=== PATIENT | male | born 1950 | race Caucasian/White ===

== ENCOUNTER 2020-04-09 14:20 | Inpatient (IN) | payer MEDICARE, MEDICAID ==
[2020-04-09] MEDS ORDERED: Polyethylene Glycol 3350 Powder 17 GM Packet PO PRN (15:01)
[2020-04-09] MEDS ORDERED: Acetaminophen 325 MG Tab PO PRN (15:09)
[2020-04-09] MEDS ORDERED: Zinc (Zinc Gluconate) 50 MG Tab PO SCH (15:15)
--- NOTE | 2020-04-09 15:32 | PCM.HP.2 ---
H&P History of Present Illness - General Date of Service: 04/09/20 Admit Problem/Dx: Admission Diagnosis/Problem Admission Diagnosis/Problem Pneumonia Source of Information: Patient, Family, Alf Records, Other (EMR) - History of Present Illness Initial Comments - Free Text/Narative: Mr. 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 Additional history is obtained from the patient's sister and the electronic medical record given his history of intellectual disabilities. His sister states that she feels he has likely been ill for at least 2 days. He has been more fatigued and forgetting to call her, which is very unusual for him. She had also noticed that he was coughing when she talked to him on the phone a couple of days ago. He was tested yesterday due to symptoms noted by [facility] staff and did come back positive. He was started on oxygen and dexamethasone per standing orders. His oxygen requirements have progressively increased and he had been titrated up to the maximum that they are able to do at the [facility] with persistent saturations still in the 89% range. Therefore, discussion was had with the patient's sister and she was agreeable to admission to [facility] for further cares. The p atient states that he has been feeling fatigued and has had a mild cough. He denies any fever, chills, vomiting, diarrhea, or shortness of breath. He states that he is not having any chest pain. He admits that he is not sure his medical history nor his medications at this point in time. - Related Data Allergies/Adverse Reactions: Allergies Allergy/AdvReac Type Severity Reaction Status Date / Time No Known Allergies Allergy Verified 04/09/20 14:32 Home Medications: Home Meds Calcium Citrate/Vitamin D3 [Calcium Citrate - Vit D Caplet] 2 tab PO DAILY 09/09/13 [History] Dextran 70/Hypromellose [Artificial Tears] 1 drop EYEBOTH QID 09/09/13 [History] Escitalopram [Lexapro] 10 mg PO DAILY 09/09/13 [History] Folic Acid 400 mcg PO DAILY 09/09/13 [History] Multivitamin [Multivitamins] 1 tab PO DAILY 09/09/13 [History] Omeprazole [Prilosec] 20 mg PO Q48H 09/09/13 [History] Oxybutynin Chloride [Ditropan Xl] 10 mg PO DAILY 09/09/13 [History] polyethylene glycoL 3350 [Miralax] 17 gm PO DAILY 09/09/13 [History] Clotrimazole [Lotrimin AF] 1 applic TOP DAILY PRN 04/09/20 [History] Docusate Sodium 100 mg PO BID 04/09/20 [History] Hydrocortisone [Hydrocortisone 2.5% Crm] 1 applic TOP ASDIRECTED PRN 04/09/20 [History] Ketoconazole [Ketoconazole 2%] 1 applic TOP ASDIRECTED PRN 04/09/20 [History] Loperamide [Imodium AD] 0 dose PO ASDIRECTED PRN MDD 16 mg per 24 hours 04/09/20 [History] Pimecrolimus [Elidel] 1 applic TOP ASDIRECTED PRN 04/09/20 [History] Potassium Chloride 20 meq PO DAILY 04/09/20 [History] Pramipexole Di-HCl [Mirapex] 0.125 mg PO DAILY@1900 04/09/20 [History] Simvastatin [Zocor] 10 mg PO BEDTIME 04/09/20 [History] Soap [Cetaphil] 1 applic TOP DAILY 04/09/20 [History] hydroCHLOROthiazide [Hydrochlorothiazide] 25 mg PO DAILY 04/09/20 [History] lisinopriL [Lisinopril] 10 mg PO DAILY 04/09/20 [History] metFORMIN [Glucophage] 500 mg PO DAILY 04/09/20 [History] risperiDONE [Risperdal] 0.5 mg PO BID 04/09/20 [History] Past Medical History HEENT History: Reports: None Cardiovascular History: Reports: Hypertension Respiratory History: Reports: COPD Gastrointestinal History: Reports: Chronic Constipation Genitourinary History: Reports: None Musculoskeletal History: Reports: Osteoporosis Other Musculoskeletal History: Marfan Syndrome Neurological History: Reports: Migraines, Other (See Below) (mild intellectual disability) Other Neuro History: essential tremor, RLS Psychiatric History: Reports: Addiction (alcohol), Depression Endocrine/Metabolic History: Reports: Diabetes, Type II Hematologic History: Reports: None Immunologic History: Reports: None Oncologic (Cancer) History: Reports: None Dermatologic History: Reports: Psoriasis, Seborrheic Dermatitis - Past Surgical History HEENT Surgical History: Reports: Cataract Surgery GI Surgical History: Reports: Cholecystectomy, Colonoscopy, EGD, Hernia Repair/Other Social & Family History - Family History Cardiac: Reports: CAD, Hypertension Respiratory: Reports: Asthma Oncologic: Reports: Esophageal - Tobacco Use Tobacco Use Status *Q: Former Tobacco User - Alcohol Use Alcohol Use History: Yes Alcohol Use in Last Twelve Months: No - Recreational Drug Use Recreational Drug Use: No Drug Use in Last 12 Months: No - Living Situation & Occupation Living situation: Reports: Single, Extended Care Facility Occupation: Disabled H&P Review of Systems - Review of Systems: Review Of Systems: See Below General: Reports: Malaise, Weakness, Fatigue. Denies: Fever, Chills HEENT: Reports: No Symptoms Pulmonary: Reports: Cough. Denies: Shortness of Breath Cardiovascular: Reports: No Symptoms Gastrointestinal: Reports: No Symptoms Genitourinary: Reports: No Symptoms Musculoskeletal: Reports: No Symptoms Skin: Reports: No Symptoms Psychiatric: Reports: No Symptoms Neurological: Reports: No Symptoms Hematologic/Lymphatic: Reports: No Symptoms Exam - Exam Exam: See Below - Exam General: Alert, Cooperative HEENT: Conjunctiva Clear, Mucosa Moist & [place], Posterior Pharynx Clear, Pupils Equal, Pupils Reactive Neck: Supple, Trachea Midline. No: Lymphadenopathy, Thyromegaly Lungs: Normal Respiratory Effort, Crackles (scattered throughout both lung steele) Cardiovascular: Regular Rate, Regular Rhythm, Normal S1, Normal S2 GI/Abdominal Exam: Normal Bowel Sounds, Soft, Non-Tender, No Organomegaly, No Distention, No Mass Extremities: Normal Inspection, Non-Tender, No Pedal Edema, Normal Capillary Refill Peripheral Pulses: 2+: Radial (L), Radial (R) Skin: Warm, Dry, Intact Neuro Extensive - Mental Status: Alert, Normal Mood/Affect - Patient Data Result Diagrams: 04/09/20 16:30 04/09/20 16:30 - Problem List (1) COVID-19 SNOMED Code(s): 424533969 ICD Code: U07.1 - COVID-19 Status: Acute Current Visit: No (2) Respiratory failure SNOMED Code(s): 754452244 ICD Code: J96.90 - RESPIRATORY FAILURE, UNSP, UNSP W HYPOXIA OR HYPERCAPNIA Status: Acute Current Visit: No Qualifiers: Chronicity: acute Respiratory failure complication: hypoxia Qualified Code(s): J96.01 - Acute respiratory failure with hypoxia (3) COPD, Moderate chronic obstructive pulmonary disease SNOMED Code(s): 211247387 ICD Code: J44.9 - CHRONIC OBSTRUCTIVE PULMONARY DISEASE, UNSPECIFIED Status: Chronic Current Visit: No (4) Mild intellectual disability Status: Chronic Current Visit: No (5) Diabetes SNOMED Code(s): 08309071 ICD Code: E11.9 - TYPE 2 DIABETES MELLITUS WITHOUT COMPLICATIONS Status: Chronic Current Visit: No Qualifiers: Diabetes mellitus type: type 2 Diabetes mellitus complication status: without complication (6) HTN, Benign hypertension SNOMED Code(s): 12245694 ICD Code: I10 - ESSENTIAL (PRIMARY) HYPERTENSION Status: Chronic Current Visit: No (7) Depression SNOMED Code(s): 63959132 ICD Code: F32.9 - MAJOR DEPRESSIVE DISORDER, SINGLE EPISODE, UNSPECIFIED Status: Chronic Current Visit: No Qualifiers: Depression Type: major depressive disorder Major depression recurrence: recurrent Active/Remission status: in full remission Qualified Code(s): F3 3.42 - Major depressive disorder, recurrent, in full remission (8) RLS (restless legs syndrome) SNOMED Code(s): 70052494 ICD Code: G25.81 - RESTLESS LEGS SYNDROME Status: Chronic Current Visit: No (9) Constipation SNOMED Code(s): 52106376 ICD Code: K59.00 - CONSTIPATION, UNSPECIFIED Status: Chronic Current Visit: No Qualifiers: Constipation type: unspecified constipation type Qualified Code(s): K59.00 - Constipation, unspecified (10) Urinary urgency Status: Chronic Current Visit: No (11) Marfan's syndrome SNOMED Code(s): 93351648 ICD Code: Q87.40 - MARFAN'S SYNDROME, UNSPECIFIED Status: Chronic Current Visit: No Problem List Initiated/Reviewed/Updated: Yes Orders Last 24hrs: Active Orders 24 hr Category Date Time Status Patient Status [ADT] Routine ADT 04/09/20 15:09 Active Notify Provider Vital Signs [RC] ASDIRECTED Care 04/09/20 15:10 Active Oxygen Therapy [RC] PRN Care 04/09/20 15:09 Active Up With Assistance [RC] ASDIRECTED Care 04/09/20 15:09 Active VTE/DVT Education [RC] PER UNIT ROUTINE Care 04/09/20 15:09 Active Vital Signs [RC] Q4H Care 04/09/20 15:09 Active [employer] Diet [DIET] Diet 04/09/20 Dinner Active C-REACTIVE PROTEIN [CHEM] Stat Lab 04/09/20 15:06 Ordered CBC WITH AUTO DIFF [HEME] Stat Lab 04/09/20 15:06 Ordered COMPREHENSIVE METABOLIC PN,CMP [CHEM] Stat Lab 04/09/20 15:06 Ordered FERRITIN [CHEM] Stat Lab 04/09/20 15:06 Ordered INR,PT,PROTHROMBIN TIME [COAG] Stat Lab 04/09/20 15:06 Ordered Acetaminophen [TylenoL] Med 04/09/20 15:09 Ordered 650 mg PO Q4H PRN Ascorbic Acid [Vitamin C] Med 04/09/20 20:00 Ordered 1,000 mg PO BID Cholecalciferol (Vitamin D3) [Vitamin D3] Med 04/10/20 08:00 Ordered 25 mcg PO DAILY Dextran 70/Hypromellose [Artificial Tears] Med 04/09/20 16:00 Ordered 1 drop EYEBOTH QID Docusate Sodium [Colace] Med 04/09/20 20:00 Ordered 100 mg PO BID Enoxaparin [Lovenox] Med 04/10/20 08:00 Ordered 40 mg SUBCUT DAILY Escitalopram [Lexapro] Med 04/10/20 08:00 Ordered 10 mg PO DAILY Omeprazole Med 04/09/20 15:15 Ordered 20 mg PO Q48H Oxybutynin Chloride [Ditropan Xl] Med 04/10/20 08:00 Ordered 10 mg PO DAILY Pramipexole [Mirapex] Med 04/09/20 19:00 Ordered 0.125 mg PO DAILY@1900 Zinc Gluconate [Zinc] Med 04/09/20 15:15 Ordered 220 mg PO DAILY atorvaSTATin [Lipitor] Med 04/09/20 20:00 Ordered 40 mg PO BEDTIME polyethylene glycoL 3350 [MiraLAX] Med 04/09/20 15:01 Ordered 17 gm PO DAILY PRN risperiDONE [Risperdal] Med 04/09/20 20:00 Ordered 0.5 mg PO BID Resuscitation Status Routine Resus Stat 04/09/20 15:09 Ordered Medication Orders Acetaminophen (Tylenol) 650 mg PO Q4H PRN PRN Reason: Pain (Mild 1-3)/fever Ascorbic Acid (Vitamin C) 1,000 mg PO BID [facility] Atorvastatin Calcium (Lipitor) 40 mg PO BEDTIME PAM Cholecalciferol (Vitamin D3) 25 mcg PO DAILY [facility] Docusate Sodium (Colace) 100 mg PO BID [facility] Enoxaparin Sodium (Lovenox) 40 mg SUBCUT DAILY [facility] Non-Formulary Medication (Dextran 70/Hypromellose [Artificial Tears]) 1 drop EYEBOTH QID [facility] Non-Formulary Medication (Escitalopram [Lexapro]) 10 mg PO DAILY [facility] Non-Formulary Medication (Oxybutynin Chloride [Ditropan Xl]) 10 mg PO DAILY [facility] Non-Formulary Medication (Risperidone [Risperdal]) 0.5 mg PO BID [facility] Omeprazole (Omeprazole) 20 mg PO Q48H [facility] Polyethylene Glycol (Miralax) 17 gm PO DAILY PRN PRN Reason: Constipation Pramipexole Dihydrochloride (Mirapex) 0.125 mg PO DAILY@1900 PAM Zinc Gluconate (Zinc) 220 mg PO DAILY PAM Stop: 04/14/20 15:16 Assessment/Plan Comment:: 70 yo male who is admitted with acute hypoxic respiratory failure secondary to COVID-19. Status is guarded at this point given he is already requiring oxygen after only 2 days of illness; however, family wanted to do everything possible for treatment. #1 COVID #2 Acute hypoxic respiratory failure - Patient had a positive COVID test at outside facility. - Hypoxic but vitals otherwise stable. - Will check CBC, CMP, ferritin, and CRP. - Titrate oxygen to goal saturations of 94%. He is currently on hi flow nasal cannula. In the absence of any respiratory distress, will continue this for now unless saturations drop below 90% at which time BiPap would be considered. - Continue dexamethasone 6 mg PO daily. - Discussed with his sister regarding remdesivir. I spoke with the patient's POA (sister) to provide information about remdesivir treatment for Leonel. They will be offered the Patient and Caregiver EUA Remdesivir Fact Sheet to read and review. I stated the drug has been approved by an emergency use authorization (EUA) process and has not fully been FDA reviewed or approved. The patient meets the EUA requirements. I shared that the drug may cause liver abnormalities and infusion related side effects. Additionally, other side effects are possible but not known as the drug has had limited studies. I discussed there are other potential treatment options that are currently not FDA approved to treat COVID- 19. I offered opportunity to ask questions and all questions were answered. Patient's sister Brina voiced understanding and agreed to proceed with treatment for Leonel. - Therefore, as long as liver tests are normal, will start this today. - Vitamins and zinc also ordered. #3 COPD - Does not appear to have evidence of a COPD exacerbation at this time. - Therefore, will hold off on nebs. If he starts to have any wheezing, will start scheduled DuoNebs. #4 Mild Intellectual Disability #5 Marfan Syndrome - Patient's sisters share POA responsibilities. Brina updated and will contact her other sisters. #6 Diabetes - Will hold metformin while hospitalized. - Glucose checks daily with am labs. - Anticipate increases with holding metformin and starting dexamethasone. Will treat with insulin as indicated. #7 Hypertension - Creatinine ok. - Continue HCTZ. Hold lisinopril for now. Can be added back PRN. #8 Depression #9 RLS #10 Constipation #11 Urinary urgency - Continue home medications apart from his vitamins, changing his bowel regimen to PRN, and simvastatin (replaced with lipitor per COVID protocol). Patient is admitted to acute as it is anticipated he will require at least 2 midnights of hospitalization. See details under problems above. Code status is DNR/DNI - reviewed with sister on admission. They are ok with everything short of CPR/intubation. Lovenox for VTE prophylaxis.
[2020-04-09 16:58] LABS: ANION GAP 12.5 mmol/L (10-20); CHLORIDE,CL 100 mmol/L (98-107); SODIUM,NA 140 mmol/L (136-145)
[2020-04-09] MEDS ORDERED: REMDESIVIR 200 MG in Sodium Chloride 0.9% 250 ML IV ONE (17:07)
--- NOTE | 2020-04-09 17:45 | CR ---
[id number] RAD/RAD Chest PA or AP 1V EXAM: FRONTAL CHEST INDICATION: COVID, HYPOXIA COMPARISON: September 09, 2013. DISCUSSION: Hyperinflation compatible with COPD. There is chronic bibasilar scarring with new superimposed mild to moderate bibasilar infiltrates. Normal heart size. IMPRESSION: 1. Bibasilar infiltrates superimposed on chronic basilar scarring. Luis Lu MD 04/09/20 1917 Thank you for allowing us to participate in the care of your patient.
[2020-04-09] MEDS: atorvaSTATin 40 MG Tab PO SCH (21:14)
[2020-04-09] MEDS: Ascorbic Acid 500 MG Tab PO SCH (21:14)
[2020-04-09] MEDS: Docusate Sodium 100 MG Cap PO SCH (21:14)
[2020-04-09] MEDS: Hypromellose 0.3% Ophth Soln 15 ML Bottle EYEBOTH SCH (21:15)
[2020-04-09] MEDS: risperiDONE 0.25 MG Tab PO SCH (21:15)
[2020-04-09] MEDS: Pramipexole 0.125 MG Tab PO SCH (21:15)
[2020-04-10] MEDS: Omeprazole 20 MG Cap.CR PO SCH (06:34)
[2020-04-10 08:33] LABS: PTT,PARTIAL THROMBOPLSTIN TIME 27.9 SEC (25.6-32.8)
[2020-04-10 08:42] LABS: CHLORIDE,CL 99 mmol/L (98-107); SODIUM,NA 139 mmol/L (136-145)
[2020-04-10 08:44] LABS: ANION GAP 11.8 mmol/L (10-20)
[2020-04-10] MEDS: Hypromellose 0.3% Ophth Soln 15 ML Bottle EYEBOTH SCH ×4 (09:10→20:03)
[2020-04-10] MEDS: Enoxaparin 40 MG/0.4 ML Syringe SUBCUT SCH (09:11)
[2020-04-10] MEDS: risperiDONE 0.25 MG Tab PO SCH ×2 (09:16→20:03)
[2020-04-10] MEDS: Zinc (Zinc Gluconate) 50 MG Tab PO SCH (09:16)
[2020-04-10] MEDS: Docusate Sodium 100 MG Cap PO SCH ×2 (09:17→20:03)
[2020-04-10] MEDS: Ascorbic Acid 500 MG Tab PO SCH ×2 (09:17→20:03)
[2020-04-10] MEDS: Dexamethasone 4 MG Tab PO SCH (09:17)
[2020-04-10] MEDS: Oxybutynin 5 MG Tab.ER PO SCH (09:17)
[2020-04-10] MEDS: Citalopram 20 MG Tab PO SCH (09:18)
[2020-04-10] MEDS: Cholecalciferol (Vitamin D3) 25 MCG Tab PO SCH (09:18)
[2020-04-10] MEDS: Hydrochlorothiazide 25 MG Tab PO SCH (09:18)
--- NOTE | 2020-04-10 11:40 | PN ---
Progress Note for JONATHAN ANDREA Date: 04/10/2020 Room #: VM.209 CHIEF COMPLAINT: Respiratory symptoms. SUBJECTIVE: Hospital day #2 for a 70-year-old male patient with a past medical history of mild intellectual disability in the setting of Marfan syndrome, hypertension, COPD, diabetes, alcoholism, in remission, depression, essential tremor, restless legs syndrome, chronic constipation. He was admitted to the acute care floor yesterday at [facility] for acute respiratory failure with hypoxia secondary to COVID-19 infection. The patient is a poor historian due to his mild intellectual disability. The patient's information obtained from nursing staff today. The patient seems to be stable. The patient continues to require oxygen to keep his saturations above 90%. The patient has, otherwise, remained hemodynamically stable. The patient does have a cough. No noticeable shortness of breath. The patient has not had any complaints of abdominal pain. The patient has remained afebrile. PHYSICAL EXAMINATION: Vital Signs: Temperature 97.3, pulse 78, blood pressure 115/63, respiratory rate 24, oxygen saturation 89% on 12 L high-flow. General: The patient is cooperative. Patient is alert. Respiratory: The patient has crackles throughout both lung steele. The patient is slightly tachypneic. Cardiovascular: Regular rate and rhythm, no murmur. Abdomen: Bowel sounds are normoactive x4. Abdomen is soft and nontender. Skin: Intact, warm, and dry. Neurologic: Patient is alert. LABORATORY STUDIES: CBC: White blood cell count 3.4, hemoglobin 13.2, hematocrit 38.7, platelets are 127,000. PT 10.5, INR 1.0, PTT 27.9. CMP: Sodium 139, potassium 3.8, chloride 99, CO2 of 32, anion gap 11.8, BUN 29, creatinine 0.9, GFR is greater than 60, glucose 156, calcium 8.6, AST 45, ALT 29, alkaline phosphatase 55, total protein is 7.0. C-reactive protein 11.6. ASSESSMENT: 1. COVID-19 infection. 2. Acute respiratory failure with hypoxia secondary to #1 above. 3. Chronic obstructive pulmonary disease. 4. Mild intellectual debility. 5. Diabetes. 6. Hypertension. 7. Depression. 8. Restless legs syndrome. 9. Constipation. 10.Urinary urgency. 11.Marfan syndrome. PLAN: A 70-year-old patient admitted yesterday to the acute care floor at [facility] for acute respiratory failure with hypoxia secondary to COVID-19. Continue with guarded status at this point. We will continue on high-flow. The patient will continue on remdesivir and dexamethasone. We will watch oxygen saturations closely. The patient is a DNR. Continue all other medications the same. Continue with Lovenox. Again, visiting with family, they do not want any CPR/intubation. TB: 04/10/2020 11:02:26 MODL: 04/10/2020 11:32:28 /[id number]
[2020-04-10] MEDS ORDERED: REMDESIVIR 100 MG in Sodium Chloride 0.9% 100 ML IV SCH (17:15)
[2020-04-10] MEDS: REMDESIVIR 100 MG in Sodium Chloride 0.9% 100 ML IV SCH (18:28)
[2020-04-10] MEDS: Pramipexole 0.125 MG Tab PO SCH (18:29)
[2020-04-10] MEDS: atorvaSTATin 40 MG Tab PO SCH (20:03)
[2020-04-11 08:45] LABS: CHLORIDE,CL 95 mmol/L (98-107); SODIUM,NA 135 mmol/L (136-145)
[2020-04-11 08:49] LABS: ANION GAP 11.4 mmol/L (10-20)
[2020-04-11] MEDS: risperiDONE 0.25 MG Tab PO SCH ×2 (12:06→19:56)
[2020-04-11] MEDS: Oxybutynin 5 MG Tab.ER PO SCH (12:06)
[2020-04-11] MEDS: Docusate Sodium 100 MG Cap PO SCH ×2 (12:06→19:56)
[2020-04-11] MEDS: Cholecalciferol (Vitamin D3) 25 MCG Tab PO SCH (12:07)
[2020-04-11] MEDS: Dexamethasone 4 MG Tab PO SCH (12:07)
[2020-04-11] MEDS: Ascorbic Acid 500 MG Tab PO SCH ×2 (12:07→19:57)
[2020-04-11] MEDS: Citalopram 20 MG Tab PO SCH (12:09)
[2020-04-11] MEDS: Hypromellose 0.3% Ophth Soln 15 ML Bottle EYEBOTH SCH ×4 (12:09→19:56)
[2020-04-11] MEDS: Hydrochlorothiazide 25 MG Tab PO SCH (12:09)
[2020-04-11] MEDS: Enoxaparin 40 MG/0.4 ML Syringe SUBCUT SCH (12:19)
--- NOTE | 2020-04-11 12:25 | PN ---
Progress Note for JONATHAN ANDREA Date: 04/11/2020 Room #: VM.209 CHIEF COMPLAINT: Respiratory symptoms. 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 The patient was admitted to the acute care floor on Sunday at [facility] for acute respiratory failure with hypoxia secondary to COVID-19 infection. The patient is a poor historian due to his mild intellectual disability. The information is obtained from the nursing staff today. The patient continues to require high-flow oxygen to maintain saturations greater than 90%. The patient otherwise has remained hemodynamically stable. The patient has an intermittent cough. No noticeable shortness of breath. The patient has not had any abdominal complaints. The patient has remained afebrile. PHYSICAL EXAMINATION: Vital Signs: Temperature 97.0, pulse is 82, blood pressure 112/56, respiratory rate 24, oxygen saturation 89% on 15 L. General: The patient is cooperative. The patient is alert. Respiratory: The patient has crackles throughout both lung steele, which have improved from yesterday. The patient is slightly tachypneic, especially with trying to answer questions. Cardiovascular: Regular rate and rhythm. No murmur. Abdomen: Bowel sounds are normoactive x4. Abdomen is soft and nontender. Skin: Intact, warm, and dry. Neurologic: The patient is alert. LABORATORY STUDIES: CBC: White blood cell count 4.9, hemoglobin 13.9, hematocrit 41.2, platelets are 118,000. CMP: Sodium 135, potassium 3.4, chloride 95, CO2 is 32, anion gap 11.4, BUN 30, creatinine 1.1, GFR is greater than 60, glucose 209, calcium 8.5, total bilirubin 1.2, AST is 42, total protein 6.9. C-reactive protein 13.8. ASSESSMENT: 1. COVID-19 infection. 2. Acute respiratory failure with hypoxia secondary to COVID-19 infection. 3. Chronic obstructive pulmonary disease. 4. Mild intellectual debility. 5. Diabetes. 6. Hypertension. 7. Depression. 8. Restless legs syndrome. 9. Constipation. 10.Urinary urgency. 11.Marfan syndrome. PLAN: Hospital day #3 for a 70-year-old male patient, admitted on Sunday to the acute care floor at [facility] secondary to acute respiratory failure with hypoxia secondary to COVID-19 infection. We will continue oxygen, the patient is requiring high-flow oxygen with low saturations. Continue to monitor laboratory work with the patient being on Remdesivir and dexamethasone. We will continue the Remdesivir as the GFR has been greater than 30. The patient is a DNR. Continue all of the medications the same. Continue on Lovenox. Encourage p.o. fluid intake. Continue to monitor LFTs. Patient is a Code 2. TB: 04/11/2020 11:45:18 MODL: 04/11/2020 12:16:39 /[id number]
[2020-04-11] MEDS: Zinc (Zinc Gluconate) 50 MG Tab PO SCH (14:13)
[2020-04-11] MEDS: REMDESIVIR 100 MG in Sodium Chloride 0.9% 100 ML IV SCH (18:18)
[2020-04-11] MEDS: Pramipexole 0.125 MG Tab PO SCH (18:20)
[2020-04-11] MEDS: atorvaSTATin 40 MG Tab PO SCH (19:57)
[2020-04-12] MEDS: Omeprazole 20 MG Cap.CR PO SCH (07:46)
[2020-04-12] MEDS: Oxybutynin 5 MG Tab.ER PO SCH (07:50)
[2020-04-12] MEDS: Dexamethasone 4 MG Tab PO SCH (07:50)
[2020-04-12] MEDS: Citalopram 20 MG Tab PO SCH (07:51)
[2020-04-12] MEDS: Zinc (Zinc Gluconate) 50 MG Tab PO SCH (07:51)
[2020-04-12] MEDS: Cholecalciferol (Vitamin D3) 25 MCG Tab PO SCH (07:51)
[2020-04-12] MEDS: risperiDONE 0.25 MG Tab PO SCH ×2 (07:51→20:06)
[2020-04-12] MEDS: Hydrochlorothiazide 25 MG Tab PO SCH (07:52)
[2020-04-12] MEDS: Ascorbic Acid 500 MG Tab PO SCH ×2 (07:52→20:06)
[2020-04-12] MEDS: Hypromellose 0.3% Ophth Soln 15 ML Bottle EYEBOTH SCH ×4 (07:53→20:07)
[2020-04-12] MEDS: Docusate Sodium 100 MG Cap PO SCH ×2 (07:53→20:06)
[2020-04-12 10:01] LABS: CHLORIDE,CL 95 mmol/L (98-107); SODIUM,NA 135 mmol/L (136-145)
[2020-04-12 10:02] LABS: ANION GAP 9.4 mmol/L (10-20)
[2020-04-12] MEDS: Enoxaparin 40 MG/0.4 ML Syringe SUBCUT SCH (10:12)
[2020-04-12] MEDS: Famotidine 20 MG Tab PO SCH (10:13)
--- NOTE | 2020-04-12 10:14 | PN ---
Progress Note for JONATHAN ANDREA Date: 04/12/2020 Room #: VM.209 SUBJECTIVE: This is hospital day #4 on a 70-year-old, admitted with COVID-19 infection. The patient has been requiring increasing oxygen and is more hypoxic with sats in the 87% to 89% range; however, he appears to be comfortable. He denies any shortness of breath, but admits to cough. He has not been eating much, but did have intake of some liquids this morning. He states he is thirsty. He is asking for drinks. He is having voiding and bowel movements. He denies any pain. He has been afebrile. He does not want to sit up. He does not want to lay on his stomach. He has been on high-flow nasal cannula. We switched him over to a nonrebreather. It did not help. His POA was contacted again today for update. She believes he started feeling sick around 04/06. OBJECTIVE: Vital Signs: His temperature is 97.1, pulse 75, blood pressure 117/66, respiratory rate 21, and O2 is 90% on 15 L. General: He is in no acute distress. Heart: Regular rate and rhythm. Lungs: Sounds are decreased in the bases with fine crackles bilaterally. Upper lungs are clear. Abdomen: Nondistended, positive bowel sounds, soft, nontender. Extremities: Warm and dry. He has just trace edema. Mental Status: He is alert. He did not answer orientation questions. He does have baseline Marfan syndrome and known diagnosis of mild intellectual disability. LABORATORY DATA: Lab work today has not been received. ASSESSMENT: 1. Coronavirus disease-19 infection, currently on day #4 of remdesivir and dexamethasone. We will repeat the liver tests today to ensure that it is safe to continue. We will repeat lab work tomorrow. 2. Chronic obstructive pulmonary disease, appears to be stable without exacerbation. He is not wheezing. He is already on dexamethasone. No steroids have needed to be given. He is not having any wheezing. 3. Marfan syndrome and intellectual disability. We will continue his home medications. 4. Acute hypoxic respiratory failure secondary to coronavirus disease-19 infection. 5. Concern for aspiration, even drinking some water. He did some coughing. We will get Speech involved. We will get a portable chest x-ray today. 6. Diabetes. Blood sugar has been 209 on his panel. I am going to start some b.i.d. Accu-Cheks given the steroids. 7. Essential hypertension. Blood pressure is controlled due to concerns for poor intake. I am going to hold his hydrochlorothiazide. His lisinopril is on hold. We will continue to monitor. 8. Depression, restless legs syndrome, constipation, and urinary urgency. PLAN: The patient will continue COVID vitamins and Lipitor per protocol. He will finish his course of remdesivir after 5 days. He will continue dexamethasone. He will continue Lovenox for DVT prophylaxis. He does have some history of GERD and is on Prilosec. I am going to add Pepcid daily as well. We will encourage a diet. We will get a swallow eval. ANNA Sparrow was updated today. The patient remains a code level 3. If his condition worsens, we would discuss with her at that time whether pursuing BiPAP or comfort cares. At this time, the patient is comfortable and not struggling to breathe despite his low saturations. TARAHA: 04/12/2020 09:00:36 MODL: 04/12/2020 10:08:33 /[id number]
--- NOTE | 2020-04-12 11:17 | CR ---
[id number] RAD/RAD Chest PA or AP 1V EXAM: RAD Chest PA or AP 1V INDICATION: HYPOXIA. COMPARISON: April 09, 2020. DISCUSSION: Cardiomediastinal silhouette is normal in size and contour. Parenchymal emphysema with scattered areas of scarring in both lungs. Those findings are similar to the prior examination. Previously seen bibasal parenchymal infiltrates have improved with some residual opacification remaining. IMPRESSION: Slightly improved appearance of previously seen bibasal opacities since the prior examination. No other significant change. Kee Toussaint MD 04/12/20 1116 Thank you for allowing us to participate in the care of your patient.
[2020-04-12] MEDS ORDERED: Glucagon,Human Recombinant 1 MG Vial IM PRN (11:56)
[2020-04-12] MEDS ORDERED: 50% Dextrose in Water 50 ML Syringe IV PRN (11:56)
[2020-04-12] MEDS ORDERED: Potassium Chloride 10 MEQ Tab.ER PO ONE (12:15)
[2020-04-12] MEDS: Insulin Glarg,Human.Rec.Analog 100 Unit/ML SUBCUT SCH (12:38)
[2020-04-12] MEDS: REMDESIVIR 100 MG in Sodium Chloride 0.9% 100 ML IV SCH (17:42)
[2020-04-12] MEDS: atorvaSTATin 40 MG Tab PO SCH (20:07)
[2020-04-12] MEDS: Pramipexole 0.125 MG Tab PO SCH (20:07)
[2020-04-13 07:35] LABS: PTT,PARTIAL THROMBOPLSTIN TIME 25.9 SEC (25.6-32.8)
[2020-04-13 07:38] LABS: CHLORIDE,CL 98 mmol/L (98-107); SODIUM,NA 139 mmol/L (136-145)
[2020-04-13 07:40] LABS: ANION GAP 10.3 mmol/L (10-20)
[2020-04-13] MEDS ORDERED: Potassium Chloride 10 MEQ Tab.ER PO ONE (08:20)
[2020-04-13] MEDS: Enoxaparin 40 MG/0.4 ML Syringe SUBCUT SCH (09:18)
[2020-04-13] MEDS: Oxybutynin 5 MG Tab.ER PO SCH (09:18)
[2020-04-13] MEDS: risperiDONE 0.25 MG Tab PO SCH ×2 (09:18→19:31)
[2020-04-13] MEDS: Cholecalciferol (Vitamin D3) 25 MCG Tab PO SCH (09:19)
[2020-04-13] MEDS: Zinc (Zinc Gluconate) 50 MG Tab PO SCH (09:19)
[2020-04-13] MEDS: Docusate Sodium 100 MG Cap PO SCH ×2 (09:19→19:31)
[2020-04-13] MEDS: Famotidine 20 MG Tab PO SCH (09:19)
[2020-04-13] MEDS: Ascorbic Acid 500 MG Tab PO SCH ×2 (09:19→19:31)
[2020-04-13] MEDS: Dexamethasone 4 MG Tab PO SCH (09:20)
[2020-04-13] MEDS: Hypromellose 0.3% Ophth Soln 15 ML Bottle EYEBOTH SCH ×4 (09:20→19:31)
[2020-04-13] MEDS: Citalopram 20 MG Tab PO SCH (09:20)
[2020-04-13] MEDS: Insulin Glarg,Human.Rec.Analog 100 Unit/ML SUBCUT SCH ×2 (09:30→09:35)
[2020-04-13] MEDS ORDERED: Flumazenil 0.1 MG/ML 5 ML MDV IVPUSH PRN (09:56)
[2020-04-13] MEDS: LORazepam 2 MG/ML SDV IVPUSH PRN ×2 (11:19→19:30)
--- NOTE | 2020-04-13 14:33 | PN ---
Progress Note for JONATHAN ANDREA Date: 04/13/2020 Room #: VM.209 SUBJECTIVE: This is hospital day #5 for a 70-year-old admitted with a COVID-19 infection. He continues to maintain oxygen saturations in the 88% to 90% range on 15 L, but the patient is more confused today. He is more agitated. He wants to get up. He wants to go home. He has had poor oral intake. He did eat his snacks yesterday but nothing at meals. He is having good urine output. He has had some bowel movements. He denies that he has had any trouble with breathing. He is coughing some still. He has switched back and forth from the non- rebreather to the nasal cannula. He has been afebrile. He is asking to drink some water, but he was too weak to suck out of the one straw but able to drink out of the other straw. He did not choke when he was swallowing. OBJECTIVE: Vital Signs: His temperature is 96, pulse 104, blood pressure 102/63, respiratory rate 20, and O2 of 90 on 15 L. General: He is in no acute distress. Heart: Regular rate and rhythm. Lungs: Lung sounds are decreased in the bases but no crackles. No wheezes. Upper lungs are clear. Abdomen: Positive bowel sounds. Soft, nontender. Extremities: Warm and dry. No edema. Mental Status: He is alert. He answers yes or no to many questions. He is hard to understand, but I can clearly understand that he wants to leave and go back home. LABORATORY DATA: His lab work that is done today did show his white count to be normal at 4.5, hemoglobin 14.9, and platelets 127. INR 1. Sodium 139, potassium 3.3, chloride 98, bicarbonate 34, BUN 36, creatinine 1.1, glucose 343, magnesium high at 2.6 yesterday, bilirubin 1.5, AST 30, ALT 26, and albumin 2.8. ASSESSMENT: 1. COVID-19 infection, on day #5 of remdesivir and dexamethasone. This is his last day. Bilirubin has trended up. We will repeat tomorrow. 2. Chronic obstructive pulmonary disease, appears to be stable without exacerbation due to no wheezing. He is already on steroids. We will hold off on any nebulizers. He is not requiring any BiPAP. 3. Marfan syndrome and intellectual disability. We will continue his home medications. 4. Acute hypoxic respiratory failure due to COVID-19 infection, update his power of trademark attorney today. His condition has not improved, but it has not worsened either. 5. Concern for aspiration. His chest x-ray did not show any pneumonia. He is not on any antibiotics. We will send off a procalcitonin level with his next laboratory draw. 6. Diabetes. Blood sugars are uncontrolled. We will increase Lantus up to 15 units and add meal insulin if that does not improve things. 7. Essential hypertension. His blood pressures are under control. He is not currently requiring any blood pressure medications. 8. Depression and agitation. We will continue his home medications, but I have also instituted some p.r.n. Ativan to avoid his restlessness and trying to get out of bed. Discussed with his power of trademark attorney, this is for his safety. 9. Gastroesophageal reflux disease. He will continue Prilosec. PLAN: At this point, the patient will complete remdesivir today. He will continue for a 10 day course of dexamethasone. He will continue on 15 L of oxygen and wean as able. We will encourage a diet. We will make adjustments to his insulin as needed. MKA: 04/13/2020 13:55:14 MODL: 04/13/2020 14:25:21 /[id number]
[2020-04-13] MEDS ORDERED: 50% Dextrose in Water 50 ML Syringe IV PRN (16:55)
[2020-04-13] MEDS ORDERED: Glucagon,Human Recombinant 1 MG Vial IM PRN (16:55)
[2020-04-13] MEDS ORDERED: Insulin Lispro 100 Units/ML 3 ML Vial SUBCUT ONE (16:55)
[2020-04-13] MEDS: REMDESIVIR 100 MG in Sodium Chloride 0.9% 100 ML IV SCH (17:47)
[2020-04-13] MEDS: Pramipexole 0.125 MG Tab PO SCH (19:31)
[2020-04-13] MEDS: atorvaSTATin 40 MG Tab PO SCH (19:31)
[2020-04-14] MEDS: LORazepam 2 MG/ML SDV IVPUSH PRN ×3 (04:00→21:49)
[2020-04-14] MEDS: Omeprazole 20 MG Cap.CR PO SCH (06:40)
[2020-04-14 08:12] LABS: CHLORIDE,CL 101 mmol/L (98-107); SODIUM,NA 143 mmol/L (136-145)
[2020-04-14 08:13] LABS: ANION GAP 11.5 mmol/L (10-20)
[2020-04-14] MEDS ORDERED: Glucagon,Human Recombinant 1 MG Vial IM PRN (08:28)
[2020-04-14] MEDS ORDERED: 50% Dextrose in Water 50 ML Syringe IV PRN (08:28)
[2020-04-14] MEDS: Enoxaparin 40 MG/0.4 ML Syringe SUBCUT SCH (08:29)
[2020-04-14] MEDS: Dexamethasone 4 MG Tab PO SCH (08:29)
[2020-04-14] MEDS: Hypromellose 0.3% Ophth Soln 15 ML Bottle EYEBOTH SCH ×4 (08:29→21:50)
[2020-04-14] MEDS: risperiDONE 0.25 MG Tab PO SCH (08:29)
[2020-04-14] MEDS: Cholecalciferol (Vitamin D3) 25 MCG Tab PO SCH (08:30)
[2020-04-14] MEDS: Zinc (Zinc Gluconate) 50 MG Tab PO SCH (08:30)
[2020-04-14] MEDS: Ascorbic Acid 500 MG Tab PO SCH (08:30)
[2020-04-14] MEDS: Famotidine 20 MG Tab PO SCH (08:30)
[2020-04-14] MEDS: Docusate Sodium 100 MG Cap PO SCH (08:30)
[2020-04-14] MEDS: Citalopram 20 MG Tab PO SCH (08:31)
[2020-04-14] MEDS: Oxybutynin 5 MG Tab.ER PO SCH (08:31)
[2020-04-14] MEDS: Insulin Glarg,Human.Rec.Analog 100 Unit/ML SUBCUT SCH ×2 (08:31→21:54)
[2020-04-14] MEDS: Insulin Lispro 100 Units/ML 3 ML Vial SUBCUT SCH ×2 (11:43→17:19)
--- NOTE | 2020-04-14 13:36 | PN ---
Progress Note for JONATHAN ANDREA Date: 04/14/2020 Room #: VM.209 SUBJECTIVE: This is hospital day #6 on a 70-year-old admitted with acute hypoxic respiratory failure secondary to COVID-19 infection. The patient is less alert this morning. He did get 0.5 of Ativan last at 4 a.m., before that it was 7 p.m. He did not eat much yesterday, just about 20% of the meal. He does not appear to be in any pain. He is not opening his eyes. He did answer one question with some mumbling. He is having a slight tremor to both hands currently. Yesterday, he was having some agitation, but now he is more relaxed. He has had some urine output through his urinal, good amount 1.1 L yesterday. He has been drinking only around 100 mL of fluid. He has been maintaining on 15 L in the 87% to 90% range for the past 5 days. He completed his remdesivir yesterday. He is on dexamethasone. The patient does have underlying history of Marfan. He has some alcoholism in remission. He was quite active at the [facility] before this occurred. He does have underlying COPD from smoking in the past. He has not had any wheezing. The patient had just been seen on 04/08/2020. He got sick with COVID on 04/09/2020. He has been afebrile. OBJECTIVE: Vital Signs: Today, his temperature is 97.3, his pulse is 102, blood pressure 139/71, respiratory rate 20, O2 of 82% on 15 L and on recheck later it did come up to 89% on 15 L. General: He is in no acute distress. He is sitting nearly upright in the bed leaning his head forward. He will not open his eyes and make eye contact. He is sort of shaking his arms like a fine tremor. Heart: Regular rate and rhythm. S1, S2 without murmur. Lungs: Lung sounds are decreased throughout. No wheezing appreciated. Abdomen: Has positive bowel sounds. Soft, nondistended, nontender. Extremities: Warm and dry. No edema. They on the cool side, but not cold. Mental Status: Unable to assess. LABORATORY DATA: Lab work from today does show white count normal at 6.9, hemoglobin 15.3, platelets 162. Venous blood gas, pH is 7.4, CO2 is 48, O2 is 37. Sodium 143, potassium 3.5, chloride 101, bicarb 34, BUN 43, creatinine 1.1 glucose 375, calcium 10.2, bilirubin 1.7, albumin 2.9. ASSESSMENT: 1. Coronavirus disease 2019 infection, severe infection, completed remdesivir, now on day #6 of dexamethasone. 2. Chronic obstructive pulmonary disease without exacerbation. Despite coronavirus disease, he is not wheezing. 3. Decreased level of responsiveness. This is presumably due to the hypoxia since his CO2 returned okay. 4. Marfan syndrome and intellectual disability. We continued his home medications, although he is unable to swallow them currently due to his mental status. 5. Acute hypoxic respiratory failure due to coronavirus disease 2019 infection. 6. Trouble swallowing and concern for aspiration. His repeat chest x-ray had actually improved. He is not on any antibiotics. 7. Diabetes uncontrolled with elevated blood sugars due to steroids. We will increase his Lantus up to 15 b.i.d. and start 5 units t.i.d. with meals. He did get 5 units with supper yesterday. 8. Essential hypertension, blood pressure is controlled. 9. Depression and agitation. This has resolved. I will cut Ativan back to 0.25, although I do not think his sedation is from that. 10.Gastroesophageal reflux disease. We will continue Prilosec. PLAN: I contacted his POA, Catherine Monteiro, and had a discussion about the failure to improve in this situation and the focus and goals of care, likely shifting toward comfort measures. She is in agreement. She is going to speak with her sister. I offered them to come in and see the patient under compassionate cares as well. For now, we will continue our current treatments but not escalate. I do not think he would benefit from BiPAP since he is not retaining any CO2 and this is not a long-term treatment and his oxygen levels could persist like this for many more days. He currently has not required anything for pain, but certainly I told her if he were on comfort measures, we would use morphine for pain. We will continue the dexamethasone for now. He is on Lovenox for DVT prophylaxis. We will hold off on switching all his pills over to IV at this point and focus more on the ones that are needed for comfort. MKA: 04/14/2020 13:06:42 MODL: 04/14/2020 13:31:09 /[id number]
[2020-04-14] MEDS ORDERED: Ondansetron 4 MG/2 ML SDV IVPUSH PRN (15:05)
[2020-04-14] MEDS ORDERED: Morphine Oral Concentrate 20 MG/ML 30 ML Bottle PO PRN (15:05)
[2020-04-14] MEDS ORDERED: diphenhydrAMINE 25 MG Cap PO PRN (15:05)
[2020-04-14] MEDS ORDERED: Atropine 1% Ophth Soln 5 ML BOTTLE SL PRN (15:05)
[2020-04-14] MEDS ORDERED: Menthol/Zinc Oxide Ointment 3.5 GM Tube TOP PRN (15:05)
[2020-04-14] MEDS ORDERED: Lidocaine 2% Viscous Solution 15 ML Cup PO PRN (15:05)
[2020-04-14] MEDS: Morphine 2 MG/ML SYRINGE IV PRN ×3 (18:17→23:28)
[2020-04-15] MEDS: Morphine 2 MG/ML SYRINGE IV PRN ×3 (01:31→09:26)
[2020-04-15] MEDS: Insulin Glarg,Human.Rec.Analog 100 Unit/ML SUBCUT SCH (09:19)
[2020-04-15] MEDS: Insulin Lispro 100 Units/ML 3 ML Vial SUBCUT SCH ×2 (09:20→12:09)
[2020-04-15] MEDS: Hypromellose 0.3% Ophth Soln 15 ML Bottle EYEBOTH SCH ×2 (09:30→12:08)
[2020-04-15] MEDS: LORazepam 2 MG/ML SDV IVPUSH PRN (09:31)
[2020-04-15] MEDS ORDERED: LORazepam 2 MG/ML SDV SUBCUT PRN (10:00)
[2020-04-15] MEDS: Morphine 2 MG/ML SYRINGE SUBCUT PRN ×3 (10:56→14:50)
--- NOTE | 2020-04-15 19:03 | PCM.DCSUM1 ---
Discharge Summary - Hospital Course Free Text/Narrative:: Patient diagnosed and admitted with COVID 19 on 04/09 and was hypoxic he has underlying COPD. He was given Remdesivir and Dexamethasone. His oxygen requirements increased to 15 L. He at times was on NRB but preferred nasal canula. He refused to prone and to do the bipap. He became less responsive on 04/14 and venous blood gas did not show any CO2 retention so I did contact his POA sister Brina. She agreed to proceed with that. He had very poor oral intake during his stay. He got morphine overnight and throughout the day along with ativan. He was continued on oxygen for comfort but his other medications were discontinued. His sister saw him this afternoon and he peacefully after that. HPI Initial Comments: I had rounded on the patient today before he at 16:15 - Discharge Data Discharge Date: 04/15/20 Discharge Disposition: Condition: - Referral to Home Health Primary Care Physician: Berna Diaz DO - Patient Summary/Data Consults: Consultations 04/12/20 08:54 Consult to Speech Language Pathology [INVESTMENT EXECUTIVE Evaluation and Treatment] [CONS] Routine 04/13/20 13:55 PT Evaluation and Treatment [CONS] Routine - Discharge Plan Home Medications: Home Meds Calcium Citrate/Vitamin D3 [Calcium Citrate - Vit D Caplet] 2 tab PO DAILY 09/09/13 [History] Dextran 70/Hypromellose [Artificial Tears] 1 drop EYEBOTH QID 09/09/13 [History] Escitalopram [Lexapro] 10 mg PO DAILY 09/09/13 [History] Folic Acid 400 mcg PO DAILY 09/09/13 [History] Multivitamin [Multivitamins] 1 tab PO DAILY 09/09/13 [History] Omeprazole [Prilosec] 20 mg PO Q48H 09/09/13 [History] Oxybutynin Chloride [Ditropan Xl] 10 mg PO DAILY 09/09/13 [History] polyethylene glycoL 3350 [Miralax] 17 gm PO DAILY 09/09/13 [History] Clotrimazole [Lotrimin AF] 1 applic TOP DAILY PRN 04/09/20 [History] Docusate Sodium 100 mg PO BID 04/09/20 [History] Hydrocortisone [Hydrocortisone 2.5% Crm] 1 applic TOP ASDIRECTED PRN 04/09/20 [History] Ketoconazole [Ketoconazole 2%] 1 applic TOP ASDIRECTED PRN 04/09/20 [History] Loperamide [Imodium AD] 0 dose PO ASDIRECTED PRN MDD 16 mg per 24 hours 04/09/20 [History] Pimecrolimus [Elidel] 1 applic TOP ASDIRECTED PRN 04/09/20 [History] Potassium Chloride 20 meq PO DAILY 04/09/20 [History] Pramipexole Di-HCl [Mirapex] 0.125 mg PO DAILY@1900 04/09/20 [History] Simvastatin [Zocor] 10 mg PO BEDTIME 04/09/20 [History] Soap [Cetaphil] 1 applic TOP DAILY 04/09/20 [History] hydroCHLOROthiazide [Hydrochlorothiazide] 25 mg PO DAILY 04/09/20 [History] lisinopriL [Lisinopril] 10 mg PO DAILY 04/09/20 [History] metFORMIN [Glucophage] 500 mg PO DAILY 04/09/20 [History] risperiDONE [Risperdal] 0.5 mg PO BID 04/09/20 [History] Oxygen Therapy Mode: Nasal Cannula - Discharge Summary/Plan Comment DC Time >30 min.: No - General Info Date of Service: 04/15/20 Subjective Update: Patient unresponsive and unable to answer - Patient Data Vitals - Most Recent: Last Vital Signs Temp 98.8 F 04/15/20 05:49 Pulse 109 H 04/14/20 10:00 Resp 22 H 04/14/20 10:00 BP 124/81 04/14/20 10:00 Pulse Ox 85 L 04/14/20 10:00 Weight - Most Recent: 105.778 kg I&O - Last 24 hours: Intake & Output 04/15/20 04/15/20 04/15/20 06:59 14:59 22:59 Output Total 625 Balance -625 Lab Results - Last 24 hrs: Laboratory Results - last 24 hr 04/14/20 04/14/20 04/15/20 Range/Units 06:45 21:54 05:44 POC Glucose 345 H 364 H (74-106) mg/dL Procalcitonin 0.10 H (<0.10) ng/mL Med Orders - Current: Current Medications Discontinued Medications Acetaminophen (Tylenol) 650 mg PO Q4H PRN PRN Reason: Pain (Mild 1-3)/fever Last Admin: 04/11/20 02:18 Dose: 650 mg Documented by: Artificial Tears (Genteal Mild To Moderate Ophth Soln) 0 ml EYEBOTH QID [facility] Last Admin: 04/15/20 12:08 Dose: Not Given Documented by: Ascorbic Acid (Vitamin C) 1,000 mg PO BID [facility] Last Admin: 04/14/20 08:30 Dose: 1,000 mg Documented by: Atorvastatin Calcium (Lipitor) 40 mg PO BEDTIME [facility] Last Admin: 04/13/20 19:31 Dose: 40 mg Documented by: Atropine Sulfate (Atropine 1% Ophth Soln) 0 ml SL Q2H PRN PRN Reason: Copius Secretions Last Admin: 04/15/20 12:39 Dose: 1 ml Documented by: Calamine/Phenol (Calmoseptine) 1 gm TOP Q2H PRN PRN Reason: Irritation Cholecalciferol (Vitamin D3) 25 mcg PO DAILY [facility] Last Admin: 04/14/20 08:30 Dose: 25 mcg Documented by: Citalopram Hydrobromide (Celexa) 20 mg PO DAILY [facility] Last Admin: 04/14/20 08:31 Dose: 20 mg Documented by: Dexamethasone (Dexamethasone) 6 mg PO DAILY [facility] Stop: 04/18/20 08:01 Last Admin: 04/14/20 08:29 Dose: 6 mg Documented by: Dextrose/Water (Dextrose 50% In Water) 50 ml IV ASDIRECTED PRN PRN Reason: Hypoglycemia Dextrose/Water (Dextrose 50% In Water) 50 ml IV ASDIRECTED PRN PRN Reason: Hypoglycemia Dextrose/Water (Dextrose 50% In Water) 50 ml IV ASDIRECTED PRN PRN Reason: Hypoglycemia Diphenhydramine HCl (Benadryl) 25 mg PO Q4H PRN PRN Reason: Nausea Docusate Sodium (Colace) 100 mg PO BID [facility] Last Admin: 04/14/20 08:30 Dose: 100 mg Documented by: Enoxaparin Sodium (Lovenox) 40 mg SUBCUT DAILY [facility] Last Admin: 04/14/20 08:29 Dose: 40 mg Documented by: Famotidine (Pepcid) 20 mg PO DAILY [facility] Last Admin: 04/14/20 08:30 Dose: 20 mg Documented by: Flumazenil (Romazicon) 0.2 mg IVPUSH ASDIRECTED PRN PRN Reason: Respiratory Depression Glucagon (Glucagen) 1 mg IM ASDIRECTED PRN PRN Reason: Hypoglycemia Glucagon (Glucagen) 1 mg IM ASDIRECTED PRN PRN Reason: Hypoglycemia Glucagon (Glucagen) 1 mg IM ASDIRECTED PRN PRN Reason: Hypoglycemia Hydrochlorothiazide (Hydrochlorothiazide) 25 mg PO DAILY [facility] Last Admin: 04/12/20 07:52 Dose: 25 mg Documented by: Remdesivir 200 mg/ Sodium (Chloride) 250 mls @ 250 mls/hr IV ONETIME ONE Stop: 04/09/20 17:08 Last Admin: 04/09/20 20:12 Dose: 250 mls/hr Documented by: Remdesivir 100 mg/ Sodium (Chloride) 100 mls @ 100 mls/hr IV Q24H [facility] Stop: 04/13/20 18:14 Last Admin: 04/10/20 18:27 Dose: Not Given Documented by: Remdesivir 100 mg/ Sodium (Chloride) 100 mls @ 100 mls/hr IV Q24H [facility] Stop: 04/13/20 18:14 Last Admin: 04/13/20 17:47 Dose: 100 mls/hr Documented by: Insulin Glargine (Lantus) 5 unit SUBCUT DAILY [facility] Last Admin: 04/13/20 09:30 Dose: Not Given Documented by: Insulin Glargine (Lantus) 15 unit SUBCUT DAILY [facility] Last Admin: 04/14/20 08:31 Dose: 15 units Documented by: Insulin Glargine (Lantus) 15 unit SUBCUT BID [facility] Last Admin: 04/15/20 09:19 Dose: 15 units Documented by: Insulin Glargine (Lantus) 15 unit SUBCUT BEDTIME [facility] Insulin Human Lispro (Humalog) 5 unit SUBCUT ONETIME ONE Stop: 04/13/20 16:56 Last Admin: 04/13/20 17:45 Dose: 5 units Documented by: Insulin Human Lispro (Humalog) 5 unit SUBCUT TIDMEALS [facility] Last Admin: 04/15/20 12:09 Dose: Not Given Documented by: Lidocaine HCl (Xylocaine 2% Viscous) 5 ml PO Q4H PRN PRN Reason: Pain Lorazepam (Ativan) 0.5 mg IVPUSH Q4H PRN PRN Reason: Anxiety Last Admin: 04/14/20 13:30 Dose: 0.5 mg Documented by: Lorazepam (Ativan) 0.25 mg IVPUSH Q4H PRN PRN Reason: Anxiety Last Admin: 04/15/20 09:31 Dose: 0.25 mg Documented by: Lorazepam (Ativan) 0.25 mg SUBCUT Q4H PRN PRN Reason: Anxiety Last Admin: 04/15/20 12:40 Dose: 0.25 mg Documented by: Morphine Sulfate (Morphine) 2 mg IV Q1H PRN PRN Reason: Pain (severe 7-10) Last Admin: 04/15/20 09:26 Dose: 2 mg Documented by: Morphine Sulfate (Morphine 20 Mg/Ml Soln) 5 mg PO Q30M PRN PRN Reason: Shortness of breath/dyspnea Morphine Sulfate (Morphine) 2 mg SUBCUT Q1H PRN PRN Reason: Pain (severe 7-10) Last Admin: 04/15/20 14:50 Dose: 2 mg Documented by: Omeprazole (Omeprazole) 20 mg PO Q48H [facility] Last Admin: 04/14/20 06:40 Dose: 20 mg Documented by: Ondansetron HCl (Zofran) 4 mg IVPUSH Q4H PRN PRN Reason: Nausea Oxybutynin Chloride (Oxybutynin Er) 10 mg PO DAILY [facility] Last Admin: 04/14/20 08:31 Dose: 10 mg Documented by: Polyethylene Glycol (Miralax) 17 gm PO DAILY PRN PRN Reason: Constipation Potassium Chloride (Klor-Con 10) 20 meq PO ONETIME ONE Stop: 04/12/20 12:16 Last Admin: 04/12/20 12:38 Dose: 20 meq Documented by: Potassium Chloride (Klor-Con 10) 20 meq PO ONETIME ONE Stop: 04/13/20 08:21 Last Admin: 04/13/20 09:29 Dose: 20 meq Documented by: Pramipexole Dihydrochloride (Mirapex) 0.125 mg PO DAILY@1900 [facility] Last Admin: 04/13/20 19:31 Dose: 0.125 mg Documented by: Risperidone (Risperidal) 0.5 mg PO BID [facility] Last Admin: 04/14/20 08:29 Dose: 0.5 mg Documented by: Zinc Gluconate (Zinc) 220 mg PO DAILY [facility] Stop: 04/14/20 15:16 Last Admin: 04/09/20 16:57 Dose: Not Given Documented by: Zinc Gluconate (Zinc) 200 mg PO DAILY [facility] Stop: 04/14/20 15:16 Last Admin: 04/14/20 08:30 Dose: 200 mg Documented by: - Exam Quality Assessment: Reports: Supplemental Oxygen General: Reports: Sedated Lungs: Reports: Decreased Breath Sounds, Rhonchi Cardiovascular: Reports: Regular Rate, Regular Rhythm GI/Abdominal Exam: Normal Bowel Sounds, Soft, Non-Tender (Male) Exam: Other (delgado) Extremities: Pedal Edema Skin: Reports: Cool
[2020-04-15] MEDS ORDERED: Insulin Glarg,Human.Rec.Analog 100 Unit/ML SUBCUT SCH (20:00)
== END 2020-04-15 16:15 | disposition expired | DRG 177 ==
LOC: VM.MS 15:38
PROVIDERS: ADMIT Family Medicine; ATTEND Family Medicine
PROC: XW033E5 Introduction of Remdesivir Anti-infective into Peripheral Vein, Percutaneous Approach, New Technology Group 5 (ICD-10-PCS; principal; 2020-04-09)
PROC: 5A0945A Assistance with Respiratory Ventilation, 24-96 Consecutive Hours, High Flow/Velocity Cannula (ICD-10-PCS; 2020-04-09)
DX: U07.1 COVID-19 (principal); J96.01 Acute respiratory failure with hypoxia; Q87.40 Marfan syndrome, unspecified; Z66 Do not resuscitate; Z51.5 Encounter for palliative care; J44.9 Chronic obstructive pulmonary disease, unspecified; F33.42 Major depressive disorder, recurrent, in full remission; I10 Essential (primary) hypertension; F70 Mild intellectual disabilities; G25.81 Restless legs syndrome; R39.15 Urgency of urination; K59.09 Other constipation; L21.9 Seborrheic dermatitis, unspecified; E11.65 Type 2 diabetes mellitus with hyperglycemia; L40.9 Psoriasis, unspecified; G43.909 Migraine, unspecified, not intractable, without status migrainosus; R45.1 Restlessness and agitation; T38.0X5A Adverse effect of glucocorticoids and synthetic analogues, initial encounter; K21.9 Gastro-esophageal reflux disease without esophagitis; F10.21 Alcohol dependence, in remission; M81.0 Age-related osteoporosis without current pathological fracture; R13.10 Dysphagia, unspecified; G25.0 Essential tremor; Z79.84 Long term (current) use of oral hypoglycemic drugs; Z79.899 Other long term (current) drug therapy; Z98.49 Cataract extraction status, unspecified eye; Z90.49 Acquired absence of other specified parts of digestive tract; Z82.49 Family history of ischemic heart disease and other diseases of the circulatory system; Z87.891 Personal history of nicotine dependence; Z99.81 Dependence on supplemental oxygen; Z98.890 Other specified postprocedural states; Z82.5 Family history of asthma and other chronic lower respiratory diseases; Z80.0 Family history of malignant neoplasm of digestive organs
CPT/HCPCS: 36415; 51702; 71045; 80053; 82728; 82803; 82962; 83735; 84145; 85025; 85610; 85730; 86140; A9270-GY; J1650; J1815-GY; J2060; J2270; J7050; J8540